=== PATIENT | female | born 1985 | race American Indian/Alaskan Native ===

== ENCOUNTER 2018-09-02 22:11 | Emergency (ER) | payer MEDICAID ==
[2018-09-03] MEDS ORDERED: DELTASONE PO ONE (05:27)
[2018-09-03] MEDS ORDERED: BENADRYL PO ONE (05:27)
[2018-09-03] MEDS ORDERED: TRIMOX PO ONE (05:27)
[2018-09-03] MEDS ORDERED: IBUPROFEN PO ONE (05:27)
--- NOTE | 2018-09-03 06:50 | Emergency Department Report ---
ED ENT HPI - General Chief complaint: Sore Throat Stated complaint: SORE THROAT Time Seen by Provider: 09/03/18 05:25 Source: patient Mode of arrival: Ambulatory Limitations: No Limitations - History of Present Illness Initial comments: Patient 33-year-old -[place] female who presents for sore throat 2 days nocturnal fever and postnasal drip no MAXIMUM TEMPERATURE temp is 98.2 in triage patient states pain with swallowing patient denies shortness of breath no wheezing no stridor no vomiting no dizziness or lightheadedness MD complaint: sore throat, difficulty swallowing Onset/Timin -: days(s) Location: throat Severity: moderate Severity scale (0 -10): 7 Quality: burning, sharp, constant Consistency: constant Improves with: none Worsens with: swallowing (is was S) Associated Symptoms: fever, pain with swallowing, sore throat - Related Data Previous Rx's Medication Instructions Recorded Last Taken Type Ciprofloxacin HCl [Cipro] 500 mg PO Q12H #10 tab 11/01/13 Unknown Rx HYDROcodone/APAP 10-325 [[place] 1 each PO Q6HR PRN #20 tablet 11/01/13 Unknown Rx 10-325 mg TAB] Amoxicillin [Trimox CAP] 500 mg PO Q8H 10 Days #30 capsule 09/03/18 Unknown Rx Benzocaine/Mentho [Cepacol X 1 each MM Q2H PRN #3 packet 09/03/18 Unknown Rx Strength] Ibuprofen 800 mg PO DAILY PRN #30 tablet 09/03/18 Unknown Rx Allergies Allergy/AdvReac Type Severity Reaction Status Date / Time No Known Allergies Allergy Unverified 11/01/13 11:28 ED Dental HPI - General Chief complaint: Sore Throat Stated complaint: SORE THROAT Time Seen by Provider: 09/03/18 05:25 Source: patient Mode of arrival: Ambulatory Limitations: No Limitations - Related Data Previous Rx's Medication Instructions Recorded Last Taken Type Ciprofloxacin HCl [Cipro] 500 mg PO Q12H #10 tab 11/01/13 Unknown Rx HYDROcodone/APAP 10-325 [[place] 1 each PO Q6HR PRN #20 tablet 11/01/13 Unknown Rx 10-325 mg TAB] Amoxicillin [Trimox CAP] 500 mg PO Q8H 10 Days #30 capsule 09/03/18 Unknown Rx Benzocaine/Mentho [Cepacol X 1 each MM Q2H PRN #3 packet 09/03/18 Unknown Rx Strength] Ibuprofen 800 mg PO DAILY PRN #30 tablet 09/03/18 Unknown Rx Allergies Allergy/AdvReac Type Severity Reaction Status Date / Time No Known Allergies Allergy Unverified 11/01/13 11:28 ED Review of Systems ROS: Stated complaint: SORE THROAT Other details as noted in HPI Constitutional: chills, fever Eyes: denies: eye pain, eye discharge, vision change ENT: throat pain, congestion. denies: ear pain, dental pain, hearing loss, epistaxis Respiratory: cough. denies: SOB with exertion, wheezing Cardiovascular: denies: chest pain, palpitations Endocrine: no symptoms reported Gastrointestinal: denies: abdominal pain, nausea, diarrhea Genitourinary: denies: urgency, dysuria, discharge Musculoskeletal: denies: back pain, joint swelling, arthralgia Skin: denies: rash, lesions Neurological: denies: headache, weakness, paresthesias Psychiatric: denies: anxiety, depression Hematological/Lymphatic: denies: easy bleeding, easy bruising ED Past Medical Hx - Past Medical History Previous Medical History?: Yes Hx Hypertension: Yes - Surgical History Past Surgical History?: Yes Additional Surgical History: c/s x 1. vag x 1 - Social History Smoking Status: Never Smoker Substance Use Type: None - Medications Home Medications: Home Medications Medication Instructions Recorded Confirmed Last Taken Type Ciprofloxacin HCl [Cipro] 500 mg PO Q12H #10 tab 11/01/13 Unknown Rx HYDROcodone/APAP 10-325 [[place] 1 each PO Q6HR PRN #20 tablet 11/01/13 Unknown Rx 10-325 mg TAB] Amoxicillin [Trimox CAP] 500 mg PO Q8H 10 Days #30 capsule 09/03/18 Unknown Rx Benzocaine/Mentho [Cepacol X 1 each MM Q2H PRN #3 packet 09/03/18 Unknown Rx Strength] Ibuprofen 800 mg PO DAILY PRN #30 tablet 09/03/18 Unknown Rx ED Physical Exam - General Limitations: No Limitations General appearance: alert, in no apparent distress - Head Head exam: Present: atraumatic, normocephalic - Eye Eye exam: Present: normal appearance, PERRL, EOMI Pupils: Present: normal accommodation - ENT ENT exam: Present: TM's normal bilaterally, normal external ear exam - Expanded ENT Exam Expanded Throat exam: Positive: tonsillar erythema, tonsillomegaly, tonsillar exudate. Negative: R peritonsillar mass, L peritonsillar mass - Neck Neck exam: Present: normal inspection, full ROM. Absent: tenderness, meningismus, lymphadenopathy, thyromegaly - Respiratory Respiratory exam: Present: normal lung sounds bilaterally. Absent: respiratory distress, wheezes, stridor, chest wall tenderness - Cardiovascular Cardiovascular Exam: Present: regular rate, normal rhythm, normal heart sounds. Absent: systolic murmur, diastolic murmur, rubs, gallop - GI/Abdominal GI/Abdominal exam: Present: soft, normal bowel sounds. Absent: distended - Rectal Rectal exam: Present: deferred - Extremities Exam Extremities exam: Present: normal inspection, full ROM, normal capillary refill. Absent: tenderness, pedal edema, joint swelling, calf tenderness - Back Exam Back exam: Present: normal inspection, full ROM, muscle spasm, vertebral tenderness. Absent: tenderness (all), CVA tenderness (R), CVA tenderness (L), paraspinal tenderness, rash noted - Neurological Exam Neurological exam: Present: alert, oriented X3, CN II-XII intact, normal gait, reflexes normal - Psychiatric Psychiatric exam: Present: normal affect, normal mood - Skin Skin exam: Present: warm, dry, intact, normal color, urticaria. Absent: rash ED Course Vital Signs 09/02/18 23:06 Temperature 98.2 F Pulse Rate 97 H Respiratory 18 Rate Blood Pressure 129/86 O2 Sat by Pulse 98 Oximetry ED Medical Decision Making - Medical Decision Making this is pharyngitis plan amoxicillin prednisone ibuprofen, follow up with pcp in 2-3 days return to work in 2 days , pt and family members verbalized agreement verbalized an agreement with discharge plan. Critical care attestation.: If time is entered above; I have spent that time in minutes in the direct care of this critically ill patient, excluding procedure time. ED Disposition Clinical Impression: Pharyngitis Qualifiers: Pharyngitis/tonsillitis etiology: unspecified etiology Qualified Code(s): J02.9 - Acute pharyngitis, unspecified Disposition: - TO HOME OR SELFCARE Is pt being admited?: No Does the pt Need Aspirin: No Condition: Good Instructions: Pharyngitis (ED) Prescriptions: Benzocaine/Mentho [Cepacol X Strength] 1 each MM Q2H PRN #3 packet PRN Reason: throat pain Ibuprofen 800 mg PO DAILY PRN #30 tablet PRN Reason: pain Amoxicillin [Trimox CAP] 500 mg PO Q8H 10 Days #30 capsule Referrals: EVAN FANG MD [Primary Care Provider] - 3-5 Days Forms: Work/School Release Form(ED) Time of Disposition: 07:05
[2018-09-03 07:13] VITALS: BP 139/70
== END 2018-09-03 07:12 | disposition home or self-care (01) ==
LOC: ED 22:11
DX: J02.9 Acute pharyngitis, unspecified (principal); I10 Essential (primary) hypertension
CPT/HCPCS: 87116; 87430; 99283; J7512